=== PATIENT | female | born 1990 | race Caucasian/White ===

== ENCOUNTER 2019-02-26 13:13 | Inpatient (IN) ==
[2019-02-25 14:08] LABS: Amphetamine Screen,Urine Negative ng/mL (Cutoff=1000); Barbiturate Screen,Urine Negative ng/mL (Cutoff=200); Benzodiazepines Screen,Urine Negative ng/mL (Cutoff=200); Cannabinoid Screen,Urine Negative ng/mL (Cutoff = 50); Cocaine Screen,Urine Negative ng/mL (Cutoff= 300); Opiate Screen,Urine Negative ng/mL (Cutoff=300); Phencyclidine Screen,Urine Negative ng/mL (Cutoff=25)
[~2019-02-26 13:13] MED LIST: Epidural Premix (fent/bupiv) 110 ML EP SCH; Famotidine 20 MG/2 ML VIAL IVP PRN; Lidocaine 1% 20 ML MDV INFILT PRN; Metoclopramide 10 MG/2 ML VIAL IVP PRN; Naloxone 0.4 MG/ML INJ IVP PRN; Ondansetron 4 MG/2 ML VIAL IVP PRN; Penicillin G Potassium 5,000,000 UNIT in 0.9 % Sodium Chloride Mini Bag 100 ML IVPB ONE; Ringers Solution, Lactated 1,000 ML ONE; miSOPROStoL 100 MCG TABLET PO ONE
[2019-02-26] MEDS ORDERED: Penicillin G Potassium 5,000,000 UNIT in 0.9 % Sodium Chloride Mini Bag 100 ML IVPB ONE (13:22)
[2019-02-26] MEDS: Ringers Solution, Lactated 1,000 ML IVC SCH ×2 (13:28→17:10)
[2019-02-26] MEDS ORDERED: Metoclopramide 10 MG/2 ML VIAL IVP PRN (13:29)
[2019-02-26] MEDS ORDERED: Lidocaine 1% 20 ML MDV ID PRN (13:29)
[2019-02-26] MEDS ORDERED: Ondansetron 4 MG/2 ML VIAL IVP PRN (13:29)
[2019-02-26] MEDS ORDERED: Famotidine 20 MG/2 ML VIAL IVP PRN (13:29)
[2019-02-26] MEDS ORDERED: Naloxone 0.4 MG/ML INJ IVP PRN (13:29)
[2019-02-26] MEDS ORDERED: *HR* Nalbuphine 10 MG/ML AMPUL IVP PRN (13:29)
[2019-02-26 13:39] LABS: Basophils % 0.3 %; Eosinophils # 0.1 K/mcL (0.0-0.6); Eosinophils % 0.4 %; Hematocrit 41.7 % (35.3-44.9); Hemoglobin 13.7 g/dL (11.5-15.4); Immature Granulocytes % 0.6 % (0-4); Immature Platelets 11.1 % (1.1-6.1); Lymphocytes # 2.8 K/mcL (0.6-4.6); Lymphocytes % 17.9 %; Mean Corpuscular HGB Conc 32.9 g/dL (31.6-35.5); Mean Corpuscular Volume 88.3 fL (83.0-100.0); Mean Platelet Volume 12.3 fL (9.4-12.4); Monocytes % 6.8 %; Neutrophils # 11.4 K/mcL (1.6-8.9); Platelet Count 330 K/mcL (140-400); Red Blood Count 4.72 M/mcL (3.82-4.97); Red Cell Distribution Width 18.3 % (11.5-14.5); White Blood Count 15.4 K/mcL (4.3-11.1)
[2019-02-26] MEDS ORDERED: Bupivacaine-MPF 0.25% 10 ML VIAL ONE (14:18)
[2019-02-26] MEDS ORDERED: *HR* FentaNYL (PF) 100 MCG/2 ML VIAL ONE (14:18)
[2019-02-26] MEDS ORDERED: Epidural Premix (fent/bupiv) 110 ML EP ONE (14:19)
[2019-02-26] MEDS: Penicillin G Potassium 2,500,000 UNIT in 0.9 % Sodium Chloride 100 ML IVPB SCH ×2 (17:08→21:00)
[2019-02-26] MEDS: Epidural Premix (fent/bupiv) 110 ML EP SCH ×2 (17:09→21:43)
[2019-02-26] MEDS ORDERED: Oxytocin 20 units/ LR 1000 mL 20 UNIT/1,000 ML BAG IVC SCH (17:45)
[2019-02-27] MEDS ORDERED: Lidocaine/EPI 1:200k 2% PF 20 ML VIAL ONE (00:02)
[2019-02-27] MEDS: Penicillin G Potassium 2,500,000 UNIT in 0.9 % Sodium Chloride 100 ML IVPB SCH ×4 (00:54→12:14)
[2019-02-27] MEDS ORDERED: Benzocaine/Menthol 56 GM AEROSOL SPRAY TP PRN (04:12)
[2019-02-27] MEDS: Ibuprofen 600 MG TABLET PO PRN ×3 (05:15→19:54)
[2019-02-27 05:42] LABS: Red Cell Distribution Width 18.2 % (11.5-14.5)
[2019-02-27 05:43] LABS: Hematocrit 33.7 % (35.3-44.9); Hemoglobin 10.7 g/dL (11.5-15.4); Mean Corpuscular HGB Conc 31.8 g/dL (31.6-35.5); Mean Corpuscular Hemoglobin 28.8 pg (28.0-33.3); Mean Corpuscular Volume 90.6 fL (83.0-100.0); Platelet Count 324 K/mcL (140-400); Red Blood Count 3.72 M/mcL (3.82-4.97); White Blood Count 29.8 K/mcL (4.3-11.1)
[2019-02-27] MEDS: Prenatal Vit/FA 1 EACH TABLET PO SCH (07:47)
[2019-02-27] MEDS: Acetaminophen 325 MG TABLET PO PRN (07:47)
[2019-02-27] MEDS: Ringers Solution, Lactated 1,000 ML IVC SCH ×3 (09:13→12:13)
[2019-02-27] MEDS: Oxytocin 20 units/ LR 1000 mL 20 UNIT/1,000 ML BAG IVC SCH ×2 (09:14→09:21)
[2019-02-27] MEDS ORDERED: Penicillin G Potassium 2,500,000 UNIT in 0.9 % Sodium Chloride 100 ML IVPB SCH (10:45)
[2019-02-27] MEDS ORDERED: Ringers Solution, Lactated 1,000 ML IVC SCH ×2 (10:45→12:15)
[2019-02-27] MEDS ORDERED: Naloxone 0.4 MG/ML INJ IVP PRN (12:02)
[2019-02-27] MEDS ORDERED: Lidocaine 1% 20 ML MDV INFILT PRN (12:02)
[2019-02-27] MEDS ORDERED: Famotidine 20 MG/2 ML VIAL IVP PRN (12:02)
[2019-02-27] MEDS ORDERED: Metoclopramide 10 MG/2 ML VIAL IVP PRN (12:02)
[2019-02-27] MEDS ORDERED: Ondansetron 4 MG/2 ML VIAL IVP PRN (12:02)
[2019-02-27] MEDS ORDERED: Nicotine 14 MG PATCH.TD24 TD SCH (14:30)
[2019-02-28 08:03] VITALS: BP 109/64
[2019-02-28 08:54] LABS: Basophils # 0.1 K/mcL (0.0-0.2); Basophils % 0.6 %; Eosinophils # 0.2 K/mcL (0.0-0.6); Eosinophils % 1.1 %; Hematocrit 32.8 % (35.3-44.9); Hemoglobin 10.5 g/dL (11.5-15.4); Immature Granulocytes % 0.6 % (0-4); Lymphocytes # 2.4 K/mcL (0.6-4.6); Lymphocytes % 15.2 %; Mean Corpuscular Hemoglobin 29.2 pg (28.0-33.3); Mean Corpuscular Volume 91.1 fL (83.0-100.0); Mean Platelet Volume 11.4 fL (9.4-12.4); Monocytes # 1.2 K/mcL (0.0-1.3); Monocytes % 7.6 %; Platelet Count 321 K/mcL (140-400); Segmented Neutrophils % 74.9 %
[2019-02-28] MEDS: Ibuprofen 600 MG TABLET PO PRN (08:56)
[2019-02-28] MEDS: Prenatal Vit/FA 1 EACH TABLET PO SCH (08:57)
[2019-02-28] MEDS: Acetaminophen 325 MG TABLET PO PRN (13:48)
== END 2019-02-28 18:10 | disposition home or self-care (01) | DRG 560 ==
LOC: 1NENULAB → 1NENUOBS 02-27 05:26
PROVIDERS: ADMIT Advanced Practice Midwife; ATTEND Advanced Practice Midwife

== ENCOUNTER 2020-07-20 20:03 | Observation (INO) ==
[2020-07-20 20:45] LABS: Basophils # 0.1 K/mcL (0.0-0.2); Basophils % 0.7 %; Eosinophils # 0.2 K/mcL (0.0-0.6); Eosinophils % 1.5 %; Hematocrit 43.1 % (35.3-44.9); Hemoglobin 14.5 g/dL (11.5-15.4); Immature Granulocytes % 0.4 % (0-4); Lymphocytes # 4.1 K/mcL (0.6-4.6); Lymphocytes % 30.5 %; Mean Corpuscular HGB Conc 33.6 g/dL (31.6-35.5); Mean Corpuscular Hemoglobin 30.4 pg (28.0-33.3); Mean Corpuscular Volume 90.4 fL (83.0-100.0); Mean Platelet Volume 10.3 fL (9.4-12.4); Monocytes # 1.2 K/mcL (0.0-1.3); Monocytes % 9.1 %; Neutrophils # 7.8 K/mcL (1.6-8.9); Platelet Count 371 K/mcL (140-400); Red Blood Count 4.77 M/mcL (3.82-4.97); Red Cell Distribution Width 14.1 % (11.5-14.5); Segmented Neutrophils % 57.8 %; White Blood Count 13.5 K/mcL (4.3-11.1)
[2020-07-20 21:04] LABS: Acetaminophen 10 mcg/mL (10-20); BUN/Creatinine Ratio 7 (6-26); Blood Urea Nitrogen 5 mg/dL (6-20); Calcium 9.2 mg/dL (8.6-10.3); Carbon Dioxide 21 mEq/L (23-29); Chloride 106 mEq/L (98-107); Ethanol 121 mg/dL (Less than 10); Glucose 82 mg/dL (70-105); Osmolality,Calculated 282 (280-300); Potassium 3.2 mEq/L (3.5-5.1); Salicylate < 2.5 mg/dL (15.0-30.0); Sodium 138 mEq/L (136-145); eGFR For African Americans > 60 (> 60); eGFR For Non-African Americans > 60 (> 60)
[2020-07-20 21:14] LABS: Bilirubin,Urine Negative (Negative); Blood,Urine Negative (Negative); Clarity,Urine Clear (Clear); Color,Urine Colorless (Yellow); Glucose,Urine (UA) Normal (Normal); Ketones,Urine Negative (Negative); Leukocyte Esterase,Urine Negative (Negative); Nitrite,Urine Negative (Negative); PH,Urine 6.5 pH Units (5.0-8.0); Protein,Urine Negative (Neg-Trace); Specific Gravity,Urine < 1.005 (1.010-1.025); Urobilinogen,Urine Normal (Normal)
[2020-07-20 21:17] LABS: Platelet Estimate Normal (Normal); Reactive Lymphocytes Present (Not Present)
[2020-07-20 21:22] LABS: Amphetamine Screen,Urine Negative ng/mL (Cutoff=1000); Barbiturate Screen,Urine Negative ng/mL (Cutoff=200); Benzodiazepines Screen,Urine Negative ng/mL (Cutoff=200); Cannabinoid Screen,Urine Negative ng/mL (Cutoff = 50); Cocaine Screen,Urine Negative ng/mL (Cutoff= 300); Opiate Screen,Urine Negative ng/mL (Cutoff=300); Phencyclidine Screen,Urine Negative ng/mL (Cutoff=25)
[2020-07-20] MEDS ORDERED: Nicotine 14 MG PATCH.TD24 TD ONE (23:08)
[2020-07-21] MEDS ORDERED: 0.9 % Sodium Chloride 1,000 ML IV ONE (04:12)
[2020-07-21] MEDS ORDERED: Dexamethasone Sodium Phos/PF 10 MG/ML VIAL PO ONE (04:13)
[2020-07-21] MEDS ORDERED: *HR* Promethazine 25 MG/ML VIAL IM PRN (05:25)
[2020-07-21] MEDS ORDERED: Ondansetron 4 MG/2 ML VIAL IVP PRN (05:25)
[2020-07-21] MEDS ORDERED: Naloxone 0.4 MG/ML INJ IVP PRN (05:25)
[2020-07-21] MEDS ORDERED: Acetaminophen 325 MG TABLET PO PRN (05:26)
[2020-07-21] MEDS ORDERED: *HR* LORazepam 2 MG/ML VIAL IVP PRN ×3 (05:27)
[2020-07-21] MEDS: *HR* Enoxaparin 40 MG/0.4 ML SYRINGE SQ SCH (06:09)
[2020-07-21 07:19] LABS: Basophils # 0.1 K/mcL (0.0-0.2); Basophils % 0.7 %; Eosinophils # 0.1 K/mcL (0.0-0.6); Hematocrit 44.6 % (35.3-44.9); Hemoglobin 14.4 g/dL (11.5-15.4); Immature Granulocytes % 0.3 % (0-4); Lymphocytes # 1.9 K/mcL (0.6-4.6); Lymphocytes % 19.6 %; Mean Corpuscular HGB Conc 32.3 g/dL (31.6-35.5); Mean Corpuscular Hemoglobin 29.8 pg (28.0-33.3); Mean Corpuscular Volume 92.3 fL (83.0-100.0); Mean Platelet Volume 10.5 fL (9.4-12.4); Monocytes # 0.5 K/mcL (0.0-1.3); Monocytes % 5.1 %; Neutrophils # 7.2 K/mcL (1.6-8.9); Platelet Count 353 K/mcL (140-400); Red Blood Count 4.83 M/mcL (3.82-4.97); Red Cell Distribution Width 14.4 % (11.5-14.5); Segmented Neutrophils % 73.3 %; White Blood Count 9.8 K/mcL (4.3-11.1)
[2020-07-21 07:44] LABS: Alanine Aminotransferase 12 Units/L (7-52); Albumin 4.3 g/dL (3.5-5.7); Albumin/Globulin Ratio 1.5 (1.1-2.2); Alkaline Phosphatase 122 Units/L (34-104); Aspartate Amino Transferase 13 Units/L (13-39); BUN/Creatinine Ratio 8 (6-26); Bilirubin,Total 0.6 mg/dL (0.3-1.0); Blood Urea Nitrogen 6 mg/dL (6-20); Calcium 9.1 mg/dL (8.6-10.3); Carbon Dioxide 24 mEq/L (23-29); Chloride 107 mEq/L (98-107); Globulin 2.8 g/dL (2.4-3.5); Glucose 93 mg/dL (70-105); Magnesium 2.2 mg/dL (1.6-2.6); Osmolality,Calculated 285 (280-300); Potassium 4.2 mEq/L (3.5-5.1); Sodium 139 mEq/L (136-145); Total Protein 7.1 g/dL (6.4-8.9); eGFR For African Americans > 60 (> 60); eGFR For Non-African Americans > 60 (> 60)
[2020-07-21] MEDS: Nicotine 21 MG PATCH.TD24 TD SCH ×2 (08:03→15:51)
[2020-07-21] MEDS ORDERED: Thiamine (B-1) 100 MG, Folic Acid 1 MG, MVI, adult with vitamin K 10 ML in 0.9 % Sodi... IVPB SCH (09:00)
[2020-07-21] MEDS ORDERED: Nicotine 14 MG PATCH.TD24 TD SCH (09:00)
[2020-07-21] MEDS: OXcarbazepine 150 MG TABLET PO SCH ×2 (11:12→20:16)
[2020-07-21] MEDS: Nicotine 2 MG GUM BC PRN ×2 (15:51→19:32)
[2020-07-21] MEDS ORDERED: Multivit/Ca/Min/Fe/FA 1 TAB TABLET PO SCH (18:30)
[2020-07-21] MEDS ORDERED: Lurasidone 20 MG TABLET PO SCH (18:45)
[2020-07-21] MEDS ORDERED: Mirtazapine 15 MG TABLET PO SCH (21:00)
[2020-07-22] MEDS: *HR* Enoxaparin 40 MG/0.4 ML SYRINGE SQ SCH (04:56)
[2020-07-22 08:05] VITALS: BP 103/66
[2020-07-22] MEDS: OXcarbazepine 150 MG TABLET PO SCH (09:06)
[2020-07-22] MEDS: Nicotine 21 MG PATCH.TD24 TD SCH (09:06)
== END 2020-07-22 12:04 | disposition home or self-care (01) ==
LOC: EMEROOARM 20:03 → 3BNU 20:03
PROVIDERS: ADMIT Family Medicine; ATTEND Family Medicine

== ENCOUNTER 2021-06-14 15:14 | Inpatient (IN) ==
[2021-06-14] MEDS ORDERED: 0.9 % Sodium Chloride 1,000 ML IV ONE (15:50)
[2021-06-14] MEDS ORDERED: Pantoprazole 40 MG VIAL IVP ONE (15:50)
[2021-06-14] MEDS ORDERED: Famotidine 20 MG/2 ML VIAL IVP ONE (15:50)
[2021-06-14] MEDS ORDERED: Ondansetron 4 MG/2 ML VIAL IVP PRN ×2 (15:50→21:24)
[2021-06-14 16:11] LABS: Bacteria,Urine Few per hpf (None-Few); Bilirubin,Urine Negative (Negative); Blood,Urine Negative (Negative); Clarity,Urine Turbid (Clear); Color,Urine Yellow (Yellow); Glucose,Urine (UA) Normal (Normal); Ketones,Urine 20 mg/dL (Negative); Leukocyte Esterase,Urine Trace (Negative); Mucus,Urine Moderate per lpf (None-Few); Nitrite,Urine Negative (Negative); Protein,Urine 100 mg/dL (Neg-Trace); Squamous Epithelial Cell,Urine Few per hpf (None-Few); Urobilinogen,Urine Normal (Normal)
[2021-06-14 16:12] LABS: Basophils # 0.1 K/mcL (0.0-0.2); Basophils % 0.6 %; Eosinophils % 0.2 %; Hematocrit 37.7 % (35.3-44.9); Immature Granulocytes % 0.6 % (0-4); Lymphocytes # 1.8 K/mcL (0.6-4.6); Lymphocytes % 13.8 %; Mean Corpuscular HGB Conc 29.2 g/dL (31.6-35.5); Mean Corpuscular Hemoglobin 22.1 pg (28.0-33.3); Mean Corpuscular Volume 75.7 fL (83.0-100.0); Mean Platelet Volume 10.8 fL (9.4-12.4); Monocytes # 0.8 K/mcL (0.0-1.3); Monocytes % 5.9 %; Neutrophils # 10.1 K/mcL (1.6-8.9); Platelet Count 445 K/mcL (140-400); Red Blood Count 4.98 M/mcL (3.82-4.97); Red Cell Distribution Width 18.1 % (11.5-14.5); Segmented Neutrophils % 78.9 %; White Blood Count 12.8 K/mcL (4.3-11.1)
[2021-06-14 16:24] LABS: Alanine Aminotransferase 110 Units/L (7-52); Albumin 4.6 g/dL (3.5-5.7); Albumin/Globulin Ratio 1.3 (1.1-2.2); Alkaline Phosphatase 222 Units/L (34-104); Aspartate Amino Transferase 52 Units/L (13-39); BUN/Creatinine Ratio 6 (6-26); Bilirubin,Direct 0.2 mg/dL (0.0-0.2); Bilirubin,Indirect 0.5 mg/dL (0.0-1.0); Bilirubin,Total 0.7 mg/dL (0.3-1.0); Blood Urea Nitrogen 5 mg/dL (6-20); Calcium 9.8 mg/dL (8.6-10.3); Carbon Dioxide 24 mEq/L (23-29); Chloride 100 mEq/L (98-107); Globulin 3.6 g/dL (2.4-3.5); Glucose 114 mg/dL (70-105); Lipase 11 Units/L (11-82); Osmolality,Calculated 280 (280-300); Potassium 4.1 mEq/L (3.5-5.1); Sodium 136 mEq/L (136-145); Total Protein 8.2 g/dL (6.4-8.9); eGFR For African Americans > 60 (> 60); eGFR For Non-African Americans > 60 (> 60)
[2021-06-14] MEDS ORDERED: Isovue-370 500 ML BOTTLE IVP ONE (16:24)
[2021-06-14] MEDS ORDERED: Sucralfate 1 GM TABLET PO ONE (17:05)
[2021-06-14] MEDS ORDERED: GI Cocktail 40 ML EACH PO ONE (17:05)
[2021-06-14] MEDS ORDERED: *HR* Promethazine 25 MG/ML VIAL IM ONE (17:57)
[2021-06-14] MEDS ORDERED: Piperacillin/Tazobactam 3.375 GM in 0.9 % Sodium Chloride Mini Bag 100 ML IVPB ONE (18:42)
[2021-06-14] MEDS ORDERED: Morphine Sulfate 2 MG/ML SYRINGE IVP ONE (19:19)
[2021-06-14] MEDS ORDERED: *HR* HYDROcodone/Acet 5/325 mg TABLET PO PRN (21:24)
[2021-06-14] MEDS ORDERED: Melatonin 3 MG TABLET PO PRN (21:24)
[2021-06-14] MEDS ORDERED: *HR* OxyCODONE Immed Rel 5 MG TABLET PO PRN ×2 (21:24)
[2021-06-14] MEDS ORDERED: Naloxone 0.4 MG/ML INJ IVP PRN (21:24)
[2021-06-14] MEDS ORDERED: Acetaminophen 325 MG TABLET PO PRN (21:24)
[2021-06-14] MEDS ORDERED: Ibuprofen 400 MG TABLET PO PRN (21:24)
[2021-06-14] MEDS: Nicotine 14 MG PATCH.TD24 TD SCH (22:26)
[2021-06-14] MEDS: Piperacillin/Tazobactam 3.375 GM in 0.9 % Sodium Chloride Mini Bag 100 ML IVPB SCH (22:56)
[2021-06-14] MEDS: 0.9 % Sodium Chloride 1,000 ML IVC SCH (22:56)
[2021-06-15] MEDS ORDERED: *HR* Heparin 5,000 UNIT/ML VIAL SQ SCH (06:00)
[2021-06-15] MEDS ORDERED: CeFAZolin Syr 2,000MG/20 ML 2,000 MG/20 ML SYRINGE IVPB ONE (07:00)
[2021-06-15] MEDS ORDERED: CeFAZolin Syr 3,000MG/30 ML 3,000 MG/30 ML SYRINGE IVPB ONE (07:00)
[2021-06-15] MEDS ORDERED: Isovue-300 50ML VIAL ONE (07:14)
[2021-06-15] MEDS ORDERED: *HR* Propofol 200 MG/20 ML VIAL IVP ONE (07:32)
[2021-06-15] MEDS ORDERED: *HR* Midazolam HCl 2 MG/2 ML VIAL ONE (07:32)
[2021-06-15] MEDS ORDERED: *HR* FentaNYL (PF) 100 MCG/2 ML VIAL ONE ×3 (07:32→09:30)
[2021-06-15] MEDS ORDERED: Lidocaine -MPF 2% 5 ML VIAL ONE (07:33)
[2021-06-15] MEDS ORDERED: Ondansetron 4 MG/2 ML VIAL ONE (07:33)
[2021-06-15] MEDS ORDERED: Lidocaine HCL 4 ML Topical Solution (Laryng-O-Jet Kit Sterile Pak) TP ONE (07:33)
[2021-06-15] MEDS ORDERED: *HR* Rocuronium Bromide 50 MG/5 ML VIAL ONE (07:33)
[2021-06-15] MEDS ORDERED: Famotidine 20 MG/2 ML VIAL IVP ONE (08:27)
[2021-06-15] MEDS ORDERED: Scopolamine Patch 1.5 MG PATCH.TD72 TD ONE (08:27)
[2021-06-15] MEDS ORDERED: Ipratropium Neb 0.5 MG NEBULIZER IH PRN (08:28)
[2021-06-15] MEDS ORDERED: Albuterol 2.5 MG/3 ML NEBULIZER IH PRN (08:28)
[2021-06-15] MEDS ORDERED: *HR* Meperidine 25 MG/ML SYRINGE IVP PRN (08:28)
[2021-06-15] MEDS ORDERED: *HR* HYDROmorphone PF 0.5 MG/0.5 ML SYRINGE IVP PRN (08:28)
[2021-06-15] MEDS ORDERED: Promethazine 6.25 MG in Water for inj. (sterile) 20 ML IVPB PRN (08:28)
[2021-06-15] MEDS ORDERED: Ketorolac 30 MG/ML VIAL IVP PRN (08:28)
[2021-06-15] MEDS ORDERED: *HR* Labetalol 20 MG/4 ML SYRINGE IVP PRN (08:28)
[2021-06-15] MEDS ORDERED: *HR* OxyCODONE Immed Rel 5 MG TABLET PO PRN (08:28)
[2021-06-15] MEDS ORDERED: Ondansetron 4 MG/2 ML VIAL IVP PRN ×2 (08:28→13:01)
[2021-06-15] MEDS ORDERED: Famotidine 20 MG/2 ML VIAL ONE (08:37)
[2021-06-15] MEDS ORDERED: Ketamine HCL *QUVA* 50mg (1mL) SYRINGE ONE (09:44)
[2021-06-15] MEDS ORDERED: *HR* Labetalol 20 MG/4 ML SYRINGE IVP ONE ×2 (10:13→12:09)
[2021-06-15] MEDS ORDERED: *HR* HYDROMORPHONE 2 MG/ML VIAL ONE ×2 (10:42→10:44)
[2021-06-15] MEDS: Piperacillin/Tazobactam 3.375 GM in 0.9 % Sodium Chloride Mini Bag 100 ML IVPB SCH ×3 (12:59→22:59)
[2021-06-15] MEDS: Nicotine 14 MG PATCH.TD24 TD SCH ×3 (12:59→13:27)
[2021-06-15] MEDS: 0.9 % Sodium Chloride 1,000 ML IVC SCH (12:59)
[2021-06-15] MEDS ORDERED: Acetaminophen 325 MG TABLET PO PRN (13:01)
[2021-06-15] MEDS ORDERED: Melatonin 3 MG TABLET PO PRN (13:01)
[2021-06-15] MEDS ORDERED: Ibuprofen 400 MG TABLET PO PRN (13:01)
[2021-06-15] MEDS ORDERED: 0.9 % Sodium Chloride 1,000 ML IVC SCH (13:01)
[2021-06-15] MEDS ORDERED: Naloxone 0.4 MG/ML INJ IVP PRN (13:01)
[2021-06-15] MEDS: *HR* Heparin 5,000 UNIT/ML VIAL SQ SCH (15:53)
[2021-06-15] MEDS ORDERED: Mirtazapine 15 MG TABLET PO SCH ×2 (21:00)
[2021-06-15] MEDS ORDERED: OXcarbazepine 150 MG TABLET PO SCH (21:00)
[2021-06-15] MEDS: OXcarbazepine 150 MG TABLET PO SCH (21:18)
[2021-06-16 03:31] LABS: Basophils % 0.2 %; Immature Granulocytes % 0.7 % (0-4); Lymphocytes # 1.6 K/mcL (0.6-4.6); Lymphocytes % 13.3 %; Mean Corpuscular Volume 75.9 fL (83.0-100.0); Mean Platelet Volume 11.7 fL (9.4-12.4); Monocytes # 0.8 K/mcL (0.0-1.3); Monocytes % 6.7 %; Neutrophils # 9.5 K/mcL (1.6-8.9); Platelet Count 280 K/mcL (140-400); Red Blood Count 3.82 M/mcL (3.82-4.97); Red Cell Distribution Width 17.8 % (11.5-14.5); Segmented Neutrophils % 79.1 %
[2021-06-16 03:32] LABS: Hemoglobin 8.4 g/dL (11.5-15.4)
[2021-06-16 03:53] LABS: Alanine Aminotransferase 120 Units/L (7-52); Albumin 3.5 g/dL (3.5-5.7); Albumin/Globulin Ratio 1.4 (1.1-2.2); Alkaline Phosphatase 142 Units/L (34-104); Aspartate Amino Transferase 135 Units/L (13-39); BUN/Creatinine Ratio 9 (6-26); Bilirubin,Direct 0.2 mg/dL (0.0-0.2); Bilirubin,Indirect 0.4 mg/dL (0.0-1.0); Bilirubin,Total 0.6 mg/dL (0.3-1.0); Blood Urea Nitrogen 7 mg/dL (6-20); Calcium 8.6 mg/dL (8.6-10.3); Carbon Dioxide 24 mEq/L (23-29); Chloride 106 mEq/L (98-107); Globulin 2.5 g/dL (2.4-3.5); Glucose 104 mg/dL (70-105); Osmolality,Calculated 286 (280-300); Potassium 3.9 mEq/L (3.5-5.1); Sodium 139 mEq/L (136-145); eGFR For African Americans > 60 (> 60); eGFR For Non-African Americans > 60 (> 60)
[2021-06-16] MEDS: *HR* Heparin 5,000 UNIT/ML VIAL SQ SCH (05:02)
[2021-06-16 06:50] VITALS: BP 124/82; PULSE 99; TEMP 98.3; O2SAT 96
[2021-06-16] MEDS: Nicotine 14 MG PATCH.TD24 TD SCH (08:43)
[2021-06-16] MEDS: OXcarbazepine 150 MG TABLET PO SCH (08:44)
[2021-06-16] MEDS: Piperacillin/Tazobactam 3.375 GM in 0.9 % Sodium Chloride Mini Bag 100 ML IVPB SCH (08:44)
[2021-06-16] MEDS ORDERED: Lurasidone 20 MG TABLET PO SCH ×2 (09:00)
[2021-06-16] MEDS ORDERED: Nicotine 14 MG PATCH.TD24 TD SCH (09:00)
== END 2021-06-16 12:05 | disposition home or self-care (01) | DRG 263 ==
LOC: EMEROOARM 15:14 → 3BNU 15:14
PROVIDERS: ADMIT Surgery; ATTEND Surgery